=== PATIENT | female | born 1990 | race Caucasian/White ===

== ENCOUNTER 2017-02-19 14:21 | Emergency (ER) | payer OTHER ==
[~2017-02-19] VITALS: Ht 160 cm; Wt 86.2 kg
[~2017-02-19 14:21] MED LIST: LISINOPRIL/HCTZ1 TA5 PO; SYNTHROID0.175 MG PO
[2017-02-19] MEDS ORDERED: MONO-LINYAH 281 EACH PO (14:39)
[2017-02-19] MEDS ORDERED: LEVOTHYROXINE200 MC2 PO (14:40)
[2017-02-19 14:43] LABS: BILIRUBIN NEGATIVE (NEGATIVE); BLOOD NEGATIVE (NEGATIVE); CLARITY CLEAR (CLEAR); COLOR YELLOW (YELLOW); GLUCOSE NEGATIVE (NEGATIVE); KETONE TRACE (NEGATIVE); LEUKO ESTERASE TRACE (NEGATIVE); NITRITE POSITIVE (NEGATIVE); UROBILINOGEN 0.2 E.U./dl (0.2-1.0)
[2017-02-19] MEDS ORDERED: Bactrim DS PO (14:49)
[2017-02-19] MEDS ORDERED: PYRIDIUM200 M1 PO (14:49)
[2017-02-19] MEDS ORDERED: ZOFRAN4 MG PO (14:49)
[2017-02-19 15:01] LABS: BACTERIA 2+; WBC TNTC wbc/hpf (0-5)
== END 2017-02-19 15:03 | disposition home or self-care (01) ==
LOC: ED 14:21
PROVIDERS: Nurse Practitioner Family
DX: N39.0 Urinary tract infection, site not specified (principal); R03.0 Elevated blood-pressure reading, without diagnosis of hypertension; Z79.899 Other long term (current) drug therapy

== ENCOUNTER 2017-03-26 21:29 | Emergency (ER) | payer OTHER ==
[~2017-03-26] VITALS: Ht 160 cm; Wt 90.7 kg
[~2017-03-26 21:29] MED LIST changes: +Bactrim DS PO; +LEVOTHYROXINE200 MC2 PO; +MONO-LINYAH 281 EACH PO; +PYRIDIUM200 M1 PO; +ZOFRAN4 MG PO
[2017-03-26 22:05] LABS: BILIRUBIN NEGATIVE (NEGATIVE); BLOOD 3+ (NEGATIVE); CLARITY CLOUDY (CLEAR); COLOR RED (YELLOW); GLUCOSE NEGATIVE (NEGATIVE); KETONE NEGATIVE (NEGATIVE); LEUKO ESTERASE 2+ (NEGATIVE); NITRITE POSITIVE (NEGATIVE); SPECIFIC GRAVITY >= 1.030 (1.005-1.030)
[2017-03-26 22:10] LABS: BACTERIA 4+; RBC TNTC rbc/hpf (0-2); WBC TNTC wbc/hpf (0-5)
[2017-03-26 22:18] LABS: URINE AMPHETAMINES < 1000 (1000ng/ml); URINE BARBITURATES < 200 (200ng/ml); URINE BENZODIAZEPINES < 200 (200ng/ml); URINE CANNABINOIDS (THC) < 50 (50ng/ml); URINE COCAINE < 300 (300ng/ml); URINE METHADONE < 300 (300ng/ml); URINE OPIATES < 300 (300ng/ml); URINE PHENCYCLIDINE < 25 (25ng/ml)
[2017-03-26] MEDS ORDERED: SEPTDS PO (22:45)
[2017-03-26] MEDS ORDERED: PYRIDIUM200 M1 PO (22:45)
== END 2017-03-26 22:46 | disposition home or self-care (01) ==
LOC: ED 21:29
PROVIDERS: Emergency Medicine
DX: N39.0 Urinary tract infection, site not specified (principal); Z88.5 Allergy status to narcotic agent; Z88.8 Allergy status to other drugs, medicaments and biological substances; Z79.899 Other long term (current) drug therapy

== ENCOUNTER 2018-10-21 00:30 | Emergency (ER) | payer OTHER ==
[~2018-10-21] VITALS: Ht 160 cm; Wt 104.3 kg
[~2018-10-21 00:30] MED LIST changes: +SEPTDS PO
[2018-10-21] MEDS ORDERED: OMNICEF300 MG PO (01:29)
== END 2018-10-21 02:05 | disposition home or self-care (01) ==
LOC: ED 00:30
DX: H66.93 Otitis media, unspecified, bilateral (principal); Z88.6 Allergy status to analgesic agent; Z79.899 Other long term (current) drug therapy

== ENCOUNTER 2022-07-24 13:39 | Emergency (ER) | payer OTHER ==
[~2022-07-24] VITALS: Wt 95.3 kg
[~2022-07-24 13:39] MED LIST changes: +OMNICEF300 MG PO
[2022-07-24 14:16] LABS: BASO # 0.1 10*3/uL (0.0-0.1); BASO % 0.6 % (0.0-1.0); EOS # 0.3 10*3/uL (0.0-0.4); EOS % 1.7 % (1.0-4.0); HEMATOCRIT 38.6 % (37.0-47.0); LYMPH # 4.9 10*3/uL (1.3-4.4); LYMPH % 31.2 % (27.0-41.0); MEAN CELL VOLUME 70.1 fl (81.0-99.0); MEAN CORPUSCULAR HGB 21.1 pg (27.0-31.0); MEAN CORPUSCULAR HGB CONC 30.1 g/dl (33.0-37.0); MEAN PLATELET VOLUME 10.3 fl (9.6-12.3); MONO # 0.9 10*3/uL (0.1-1.0); MONO % 5.6 % (3.0-9.0); NEUT # 9.4 10*3/uL (2.3-7.9); NEUT % 60.1 % (47.0-73.0); PLATELET COUNT AUTOMATED 418 10*3/uL (130-400); RED BLOOD COUNT 5.51 10*6/uL (4.10-5.10); RED CELL DISTRI WIDTH 21.2 % (0-14.5); WHITE BLOOD COUNT 15.6 10*3/uL (4.8-10.8)
[2022-07-24 14:35] LABS: ALKALINE PHOSPHATASE 77 U/L (46-116); BUN 10 mg/dl (9-23); CHLORIDE 96 mmol/L (98-107); SGPT/ALT 27 U/L (10-49)
[2022-07-24] MEDS ORDERED: GLUCOPHAGE500 MG PO (14:51)
== END 2022-07-24 15:13 | disposition home or self-care (01) ==
LOC: ED 13:39
PROVIDERS: Emergency Medicine
DX: I10 Essential (primary) hypertension (principal); E11.65 Type 2 diabetes mellitus with hyperglycemia; Z88.6 Allergy status to analgesic agent; Z79.899 Other long term (current) drug therapy

== ENCOUNTER 2023-12-06 10:18 | Emergency (ER) | payer OTHER ==
[~2023-12-06] VITALS: Ht 157.4 cm; Wt 90.7 kg
[~2023-12-06 10:18] MED LIST changes: +GLUCOPHAGE500 MG PO
[2023-12-06] MEDS ORDERED: PENICILLIN VK500 MG PO (11:09)
[2023-12-06] MEDS ORDERED: Motrin,Rufen800 MG PO (11:09)
[2023-12-06] MEDS ORDERED: Acetaminophen/Oxycodone 5 MG/325 MG TABLET PO ONE (11:10)
[2023-12-06] MEDS ORDERED: BENZOCAINE 20% 11.9 GM GEL T STA (11:12)
[2023-12-06] MEDS ORDERED: Lidocaine Hydrochloride 15 ML UDC PO STA (11:12)
[2023-12-06] MEDS ORDERED: Ondansetron Hydrochloride 4 MG TAB SL ONE (11:15)
[2023-12-06] MEDS ORDERED: PENICILLIN V POTASSIUM 500 MG TAB PO ONE (11:15)
[2023-12-06] MEDS ORDERED: Ketorolac Tromethamine 60 MG/2 ML VIAL IM ONE (11:15)
== END 2023-12-06 11:30 | disposition home or self-care (01) ==
LOC: ED 10:18
DX: K02.9 Dental caries, unspecified (principal); K08.89 Other specified disorders of teeth and supporting structures; I10 Essential (primary) hypertension; E03.9 Hypothyroidism, unspecified; Z88.6 Allergy status to analgesic agent; Z88.5 Allergy status to narcotic agent; Z98.890 Other specified postprocedural states; Z90.49 Acquired absence of other specified parts of digestive tract

== ENCOUNTER → 2024-02-05 | Outpatient (CLI) | payer OTHER ==
[~2024-02-05] MED LIST changes: +Motrin,Rufen800 MG PO; +PENICILLIN VK500 MG PO
== END | disposition home or self-care (01) ==
LOC: WOUNDCARE 03:23
PROVIDERS: ATTEND Nurse Practitioner Family
DX: N61.1 Abscess of the breast and nipple (principal); E11.622 Type 2 diabetes mellitus with other skin ulcer; L98.492 Non-pressure chronic ulcer of skin of other sites with fat layer exposed; I10 Essential (primary) hypertension; F17.210 Nicotine dependence, cigarettes, uncomplicated; F12.90 Cannabis use, unspecified, uncomplicated; Z90.49 Acquired absence of other specified parts of digestive tract; Z90.89 Acquired absence of other organs; Z79.899 Other long term (current) drug therapy

== ENCOUNTER → 2024-02-12 | Outpatient (CLI) | payer OTHER | END | disposition home or self-care (01) | LOC: WOUNDCARE 02:22 | PROVIDERS: ATTEND Nurse Practitioner Family | DX: N61.1 Abscess of the breast and nipple (principal); E11.622 Type 2 diabetes mellitus with other skin ulcer; L98.492 Non-pressure chronic ulcer of skin of other sites with fat layer exposed; I10 Essential (primary) hypertension; F17.210 Nicotine dependence, cigarettes, uncomplicated; F12.90 Cannabis use, unspecified, uncomplicated; Z90.49 Acquired absence of other specified parts of digestive tract; Z90.89 Acquired absence of other organs; Z79.899 Other long term (current) drug therapy ==

== ENCOUNTER → 2024-02-19 | Outpatient (CLI) | payer OTHER ==
[2024-02-19 10:07] LABS: ALKALINE PHOSPHATASE 53 U/L (46-116); BUN 13 mg/dl (9-23); CHLORIDE 106 mmol/L (98-107); CHOLESTEROL 134 mg/dL (<200); POTASSIUM 4.1 mmol/L (3.4-5.1); SGPT/ALT 10 U/L (5-49); TOTAL PROTEIN 7.5 gm/dL (6.0-8.0); TRIGLYCERIDES 687 mg/dl (<150)
== END | disposition home or self-care (01) ==
LOC: LAB 08:25
PROVIDERS: Student in an Organized Health Care Education/Training Program; ATTEND Internal Medicine
DX: E11.9 Type 2 diabetes mellitus without complications (principal)

== ENCOUNTER 2024-04-07 22:49 | Emergency (ER) | payer OTHER ==
[~2024-04-07] VITALS: Ht 160 cm; Wt 85.3 kg
[~2024-04-07 22:49] MED LIST changes: +ESCITALOPRAM OX10 MG PO; +FENOFIBRATE145 M1 PO; +JARDIANCE10 MG PO; +K-PHOS500 MG PO; +LEVOTHYROXINE150 MCG PO; +LISINOPRIL10 M1 PO; +MASON NATURAL325 MG PO; +METFORMIN XR500 MG PO; +ROSUVASTATIN CA20 MG PO; +VITAMIN D350 MCG PO
[2024-04-07] MEDS ORDERED: Ondansetron Hydrochloride 4 MG TAB SL ONE (23:25)
[2024-04-07] MEDS ORDERED: PENICILLIN V POTASSIUM 500 MG TAB PO ONE (23:25)
[2024-04-07] MEDS ORDERED: Acetaminophen/Hydrocodone 5 MG/325 MG TABLET PO ONE (23:25)
[2024-04-08] MEDS ORDERED: PENICILLIN VK500 MG PO (00:11)
== END 2024-04-08 00:22 | disposition home or self-care (01) ==
LOC: ED 22:49
DX: K02.9 Dental caries, unspecified (principal); I10 Essential (primary) hypertension; F32.A Depression, unspecified; E11.9 Type 2 diabetes mellitus without complications; E03.9 Hypothyroidism, unspecified; F17.200 Nicotine dependence, unspecified, uncomplicated; Z88.5 Allergy status to narcotic agent; Z90.49 Acquired absence of other specified parts of digestive tract; Z90.89 Acquired absence of other organs; Z98.890 Other specified postprocedural states

== ENCOUNTER → 2024-06-28 | Outpatient (CLI) | payer OTHER | END | disposition home or self-care (01) | LOC: US 09:00 | PROVIDERS: ATTEND Nurse Practitioner Women's Health | DX: O09.91 Supervision of high risk pregnancy, unspecified, first trimester (principal); Z3A.13 13 weeks gestation of pregnancy ==

== ENCOUNTER 2024-09-22 19:59 | Emergency (ER) | payer OTHER ==
[~2024-09-22] VITALS: Ht 160 cm; Wt 90.7 kg
[~2024-09-22 19:59] MED LIST changes: +AMOX-CLAV 875-1 EACH PO
[2024-09-22] MEDS ORDERED: Lidocaine Hydrochloride 15 ML UDC PO STA (20:44)
[2024-09-22] MEDS ORDERED: BENZOCAINE 20% 11.9 GM GEL T STA (20:44)
[2024-09-22] MEDS ORDERED: PENICILLIN V POTASSIUM 500 MG TAB PO ONE (20:45)
== END 2024-09-22 21:08 | disposition home or self-care (01) ==
LOC: ED 19:59
DX: K04.7 Periapical abscess without sinus (principal); I10 Essential (primary) hypertension; E11.9 Type 2 diabetes mellitus without complications; F32.A Depression, unspecified; Z79.899 Other long term (current) drug therapy; Z88.5 Allergy status to narcotic agent; F17.200 Nicotine dependence, unspecified, uncomplicated; Z90.49 Acquired absence of other specified parts of digestive tract; Z90.89 Acquired absence of other organs; Z98.890 Other specified postprocedural states